=== PATIENT | female | born 1995 | race Caucasian/White ===

== ENCOUNTER 2021-11-01 06:05 | Inpatient (IN) | payer OTHER ==
[2021-11-01 07:06] LABS: HCT 32.5 % (37.0-47.0); HGB 11.3 g/dl (12.5-16.0); MCH 32.1 pg (25.0-31.0); MCHC 34.8 g/dL (32.0-36.0); MCV 92.3 fL (78.0-100.0); MPV 10.3 fL (6.0-9.5); RBC 3.52 M/uL (4.20-5.40); RDW 12.9 % (11.5-14.0); WBC 10.3 K/uL (4.0-10.5)
[2021-11-01 09:48] LABS: BILIRUBIN NEGATIVE (NEGATIVE); BLOOD NEGATIVE Ery/uL (NEGATIVE); CLARITY CLEAR (CLEAR); COLOR YELLOW (YELLOW); GLUCOSE (U) NORMAL (NORMAL); LEUKOCYTES NEGATIVE Leu/uL (NEGATIVE); NITRITE NEGATIVE (NEGATIVE); PROTEIN NEGATIVE (NEGATIVE); SPECIFIC GRAVITY 1.015 (1.001-1.030); UROBILINOGEN 0.2 mg/dL (0.2-1.0); pH 6.5 (5.0-9.0)
[2021-11-02 07:03] LABS: HCT 29.3 % (37.0-47.0); MCH 32.2 pg (25.0-31.0); MCHC 34.1 g/dL (32.0-36.0); MCV 94.2 fL (78.0-100.0); MPV 10.4 fL (6.0-9.5); RBC 3.11 M/uL (4.20-5.40); RDW 12.9 % (11.5-14.0); WBC 10.8 K/uL (4.0-10.5)
[2021-11-02 07:10] LABS: INR 0.96 (0.9-1.2); PROTHROMBIN TIME 12.2 SECONDS (11.8-13.4); PTT 30.3 SECONDS (24.4-34.7)
== END 2021-11-03 13:00 | disposition home or self-care (01) | DRG 787 ==
LOC: FOB 06:05 → FOD 06:05 → FOB 06:19 → FOD 06:19 → FOB 11-03 13:00
PROVIDERS: ADMIT Obstetrics & Gynecology
PROC: 10D00Z1 Extraction of Products of Conception, Low, Open Approach (ICD-10-PCS; principal; 2021-11-01 08:00)
DX: O32.1XX0 Maternal care for breech presentation, not applicable or unspecified (principal); D62 Acute posthemorrhagic anemia; O99.02 Anemia complicating childbirth; O43.123 Velamentous insertion of umbilical cord, third trimester; Z20.822 Contact with and (suspected) exposure to COVID-19; Z3A.39 39 weeks gestation of pregnancy; Z37.0 Single live birth; Z86.16 Personal history of COVID-19
CPT/HCPCS: 36415; 81003; 85384; 85610; 85730; 86850; 86900; 86901; J0690; J1885; J2274; J2370; J2405; J2916; J3010; J7120; U0002